=== PATIENT | male | born 1995 | race American Indian/Alaskan Native ===

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

== ENCOUNTER 2017-01-08 16:30 | Emergency (ER) | payer OTHER ==
[2017-01-08 16:51] VITALS: BP 130/73
--- NOTE | 2017-01-08 19:14 | Emergency Department Report ---
ED Back Pain/Injury HPI - General Chief Complaint: Back Pain/Injury Stated Complaint: NECK AND BACK PAIN Time Seen by Provider: 01/08/17 18:36 Source: patient Limitations: No Limitations - History of Present Illness Initial Comments: Report neck and back pain 6 months. Denies any new injury. He said he has a flare up of his neck and lower back pain. Denies any urinary burning for continued urgency. Denies any fever or chills. Denies any radiation of pain to his extremities. Patient states that he has a history of scoliosis and this happens from time to time. He had similar incident in the past. Denies any abdominal pain. Denies any nausea or vomiting. Denies any loss of bowel or bladder control. He said he didn't take anything [id number] for pain. Patient was last here on 07/19/2016 and was given Motrin. He said the pain feels achy and stiff better with rest and worse with movement. MD Complaint: back pain, other (NECK PAIN) Onset/Timin -: month(s) Similar Symptoms Previously: Yes Place: home Radiation: none Severity: moderate Quality: aching Consistency: intermittent Improves With: immobilization Worsens With: movement, walking Context: other ([place] previous injury and scoliosis and reported episodic flareup of back and neck pain.) Associated Symptoms: denies: confusion, weakness, chest pain, numbness, difficulty walking, cough, difficulty urinating, diaphoresis, incontinence, fever/chills, constipation, headaches, abdominal pain, loss of appetite, malaise , nausea/vomiting, rash, seizure, shortness of breath, syncope Treatments Prior to Arrival: other (no [id number] medication used per patient) - Related Data Previous Rx's Medication Instructions Recorded Last Taken Type Ibuprofen [Motrin] 800 mg PO Q8H PRN #30 tablet 08/26/13 Unknown Rx Cyclobenzaprine [Flexeril] 10 mg PO TID PRN 5 Days #15 tablet 01/08/17 Unknown Rx Ibuprofen [Motrin 600 MG tab] 600 mg PO Q8H PRN #15 tablet 01/08/17 Unknown Rx Allergies Allergy/AdvReac Type Severity Reaction Status Date / Time No Known Allergies Allergy Unverified 08/26/13 15:09 ED Review of Systems ROS: Stated complaint: NECK AND BACK PAIN Other details as noted in HPI Comment: All other systems reviewed and negative Constitutional: no symptoms reported Eyes: denies: eye pain, eye discharge, vision change Respiratory: no symptoms reported Cardiovascular: denies: chest pain, palpitations, dyspnea on exertion, edema, syncope, paroxysmal nocturnal dyspnea Gastrointestinal: denies: abdominal pain, nausea, vomiting Genitourinary: denies: urgency, dysuria, frequency, hematuria, discharge, testicular pain, testicular mass Musculoskeletal: back pain, arthralgia, myalgia. denies: joint swelling Skin: denies: rash Neurological: denies: headache, weakness, numbness, paresthesias, confusion, abnormal gait, vertigo ED Past Medical Hx - Past Medical History Previous Medical History?: Yes Additional medical history: Left knee dislocation. Back pain - Surgical History Past Surgical History?: No - Family History Family history: no significant - Social History Smoking Status: Never Smoker Substance Use Type: None - Medications Home Medications: Home Medications Medication Instructions Recorded Confirmed Last Taken Type Ibuprofen [Motrin] 800 mg PO Q8H PRN #30 tablet 08/26/13 Unknown Rx Cyclobenzaprine [Flexeril] 10 mg PO TID PRN 5 Days #15 tablet 01/08/17 Unknown Rx Ibuprofen [Motrin 600 MG tab] 600 mg PO Q8H PRN #15 tablet 01/08/17 Unknown Rx ED Physical Exam - General Limitations: No Limitations General appearance: alert, in no apparent distress - Head Head exam: Present: atraumatic, normocephalic, normal inspection - Eye Eye exam: Present: normal appearance, PERRL, EOMI. Absent: nystagmus, periorbital swelling, periorbital tenderness Pupils: Present: normal accommodation - ENT ENT exam: Present: normal exam, normal orophraynx, mucous membranes moist, TM's normal bilaterally, normal external ear exam - Neck Neck exam: Present: normal inspection, full ROM, other (C-spine tenderness). Absent: tenderness, meningismus, lymphadenopathy - Expanded Neck Exam Expanded Neck exam: Absent: tenderness, midline deformity, anterior neck swelling, thyroid mass, carotid bruit, tracheal deviation - Respiratory Respiratory exam: Present: normal lung sounds bilaterally. Absent: respiratory distress, chest wall tenderness, accessory muscle use - Cardiovascular Cardiovascular Exam: Present: regular rate, normal rhythm, normal heart sounds. Absent: systolic murmur, diastolic murmur - GI/Abdominal GI/Abdominal exam: Present: soft, normal bowel sounds. Absent: distended, tenderness, guarding, rebound, rigid - Extremities Exam Extremities exam: Present: normal inspection, full ROM, normal capillary refill , other (clubbing, cyanosis or edema. +2 pulses in all extremities. No neurovascular compromise). Absent: tenderness, pedal edema, joint swelling, calf tenderness - Back Exam Back exam: Present: normal inspection, full ROM, other (ambulate without any difficulties.). Absent: tenderness, CVA tenderness (R), CVA tenderness (L), muscle spasm, paraspinal tenderness, vertebral tenderness, rash noted - Expanded Back Exam Expanded Back exam: Absent: saddle anesthesia Back exam: Negative Straight Leg Raising: Left, Right - Neurological Exam Neurological exam: Present: alert, oriented X3, normal gait, reflexes normal, other (No gross focal neurological deficit). Absent: motor sensory deficit - Psychiatric Psychiatric exam: Present: normal affect, normal mood - Skin Skin exam: Present: warm, dry, intact, normal color. Absent: rash ED Course Vital Signs 01/08/17 16:48 Temperature 98.9 F Pulse Rate 74 Respiratory 18 Rate Blood Pressure 130/73 O2 Sat by Pulse 98 Oximetry - Reevaluation(s) Reevaluation #1: 01/08/17 20:34 stable throughout ED stay ED Medical Decision Making - Medical Decision Making ED course: Patient and is here reporting therapy of chronic back pain. Physical findings for a normal back exam, normal neck exam. Patient has no vertebral or C-spine tenderness. No paraspinal or neck muscle tenderness. Patient with acute exacerbation of chronic back pain and neck muscle pain which is also chronic. I discussed the patient that I'll put him on Flexeril and Motrin and he can follow up with orthopedic doctor for his chronic pain. He voiced understanding and discharged home in stable condition with prescription for Flexeril and Motrin Critical care attestation.: If time is entered above; I have spent that time in minutes in the direct care of this critically ill patient, excluding procedure time. ED Disposition Clinical Impression: Neck pain, bilateral, Acute exacerbation of chronic low back pain Disposition: TO HOME OR SELFCARE Is pt being admited?: No Condition: Stable Instructions: Back Pain (ED), Musculoskeletal Pain (ED) Additional Instructions: Follow-up with orthopedic doctor regarding chronic neck and back pain. These do not drive or operate heavy machinery while taking Flexeril as this medication causes drowsiness Increase fluid intake Prescriptions: Cyclobenzaprine [Flexeril] 10 mg PO TID PRN 5 Days #15 tablet PRN Reason: Muscle Spasm Ibuprofen [Motrin 600 MG tab] 600 mg PO Q8H PRN #15 tablet PRN Reason: Pain Referrals: PRIMARY CARE, [Primary Care Provider] - 3-5 Days PADMA WEBER MD [Staff Physician] - 01/10/17 Forms: Work/School Release Form(ED)
== END 2017-01-08 20:43 | disposition home or self-care (01) ==
LOC: ED 16:30
DX: M54.2 Cervicalgia (principal); M54.5 Low back pain; G89.29 Other chronic pain
CPT/HCPCS: 99282